=== PATIENT | female | born 1970 | race African-American/Black ===

== ENCOUNTER 2021-02-07 15:06 | Outpatient (REF) | payer OTHER, SELFPAY ==
[2021-02-10 22:27] LABS: HPV mRNA E6/E7 rflx Not Detected (Not Detected)
== END 2021-02-07 15:07 | disposition home or self-care (01) ==
LOC: HO.LAB 15:06
PROVIDERS: Visit Provider Obstetrics & Gynecology
DX: Z12.4 Encounter for screening for malignant neoplasm of cervix (principal); Z11.51 Encounter for screening for human papillomavirus (HPV); N95.0 Postmenopausal bleeding
CPT/HCPCS: 87624; 88142; 99202

== ENCOUNTER → 2021-02-22 11:11 | Outpatient (BNVA) | payer OTHER, SELFPAY | PROVIDERS: Visit Provider Obstetrics & Gynecology ==

== ENCOUNTER → 2021-03-03 14:35 | Outpatient (BNVA) | payer OTHER, SELFPAY | PROVIDERS: Visit Provider Obstetrics & Gynecology | DX: N95.0 Postmenopausal bleeding (principal) | CPT/HCPCS: 99212 ==

== ENCOUNTER 2021-03-11 05:59 | Day surgery (SDC) | payer OTHER, SELFPAY ==
[2021-03-04 13:26] VITALS: BMI 21.7
--- NOTE | 2021-03-10 08:31 | HO.ANESPROP2 ---
Documented by User: Lisa Gleason 03/10/21 08:31 HPI - Anesthesia Eval Consult details Narrative: 50yo F for D&C Hysteroscopy, Poss Polypectomy, Poss Myomectomy PMFSH Active Problems Active Problems: All Active Problems (Updated 02/22/21 @ 11:16 by Fuad Santana MD) Postmenopausal bleeding (Acute) Past Medical History Medical History History of bilateral breast cancer Surgical History Surgical History H/O lumpectomy Social History Social History Alcohol intake: never Patient Tobacco Use Status: Never used Tobacco Use of substances other than those prescribed or required for medical reasons: No Are you DNR?: No Advance Directives: No Advance Directives Information Provided: Yes Meds Allergies Allergy/AdvReac Type Severity Reaction Status Date / Time latex AdvReac Hives Verified 03/11/21 06:27 Home Medications Medication Instructions Recorded Confirmed Last Taken Type azelastine 1 drp OPHTHALMIC (EYE) BID 03/04/21 03/04/21 Unknown History Exam Exam Date and Time: March 10, 2021 0831 Height,Weight and Vital Signs: Height 5 ft 8 in Weight 65 kg Assessment and Plan Assessment Anesthesia Assessment: Chart Reviewed Documented by User: Yarely Dyer 03/11/21 07:29 [facility] Past Medical History Medical History History of bilateral breast cancer Surgical History Surgical History H/O lumpectomy Social History Social History Alcohol intake: never Patient Tobacco Use Status: Never used Tobacco Use of substances other than those prescribed or required for medical reasons: No Are you DNR?: No Advance Directives: No Advance Directives Information Provided: Yes Meds Allergies Allergy/AdvReac Type Severity Reaction Status Date / Time latex AdvReac Hives Verified 03/11/21 06:27 Home Medications Medication Instructions Recorded Confirmed Last Taken Type azelastine 1 drp OPHTHALMIC (EYE) BID 03/04/21 03/04/21 Unknown History Exam Airway Mallampati Class: II TM Dist: >3cm Loose/Missing/Broken Teeth: No Heart: RRR Lungs: CTA Assessment and Plan Assessment Anesthesia Assessment: Anesthesia Plan Discussed and Chart Reviewed Final Anesthetic Review NPO: Yes ASA Class: II Final Preanesthetic Review: Meds/Allgs Chart Reviewed, Consent Obtained/Reviewed and Anes Risks/Benef Reviewed Patient Risk: Low Procedure Risk: Low Anesthetic Plan Anesthetic Plan: GA Disposition: Standard PACU
[2021-03-11] VITALS (7 sets, daily range): BP systolic 105–151; BP diastolic 62–94; PULSE 76–107; RESP 16; TEMP 36.9–37.4; O2SAT 97–100
[2021-03-11] MEDS: Lactated Ringers 1,000 ML 100 ML IVCONT (06:35)
--- NOTE | 2021-03-11 07:33 | MHC.SHP ---
Pre-Procedural Eval Section A Date of Service: 03/11/21 The patient is an INPATIENT: No Changes since office visit: No Cold of Flu in the past 2 weeks, No New Medical Problems, No Changes in Medication and No Patient answered all questions The History & Physical has been completed within 30 days and I have reviewed it.: Yes Section B Chief Complaint: postmenopausal bleeding Allergies: Allergies Allergy/AdvReac Type Severity Reaction Status Date / Time latex AdvReac Hives Verified 03/11/21 06:27 Plan Diagnosis/Plan: Unchanged I have reviewed the history and physical and performed a pertinent physical examination on my patient. No changes have occurred unless specified.
--- NOTE | 2021-03-11 07:55 | PM.OP ---
Brief Operative Note Date of Service: 03/11/21 Pre-op diagnosis: Postmenopausal bleeding possible endometrial polyp Post-op diagnosis: same (Postmenopausal bleeding + normal endometrial /endocervical cavity) Procedure: Hysteroscopy D&C Surgeon: Fuad Santana MD Anesthesia: MAC Was an Occupational Therapist Aide used for this Procedure?: No Estimated blood loss (mL): 0 Pathology: other (Endometrial Scrapping) Condition: stable Disposition: PACU
--- NOTE | 2021-03-11 07:57 | W.PM.OPN ---
Operative Note Operative Note Date of Service: 03/11/21 Narrative: Preop Diagnosis: Postmenopausal bleeding, Endometrial polyp by US Operation: Diagnostic Hysteroscopy, Dilataion & Curettage Post Op Diagnosis: Normnal endometrial /endocervical cavity QBL: Minimal Anesthesia: MAC Surgeon: Fuad Santana MD Housing Relocation: None Complication: None Pathology: Endometrial Scrapings Procedure: The patient was put in the dorsal lithotomy position, scrubbed, and draped in the usual manner. A sterile speculum was inserted in the patient's vagina. The anterior lip of the cervix was grasped with a single tooth tenaculum. The cervix was dilated up to 5 mm, then the scope was inserted in the patient's uterus. Inspection revealed normnal endometrial /endocervical cavity. Sharp curetting was carried done with moderate amount of tissues retreived no complications. At the end of the procedure, all instruments were taken out of the patient uterine and vaginal cavity. The single tooth tenaculum was removed and homeostasis was assured using pressure,. The patient tolerated the procedure well and was transferred to the PACU in a stable condition.
== END 2021-03-11 09:54 | disposition home or self-care (01) ==
LOC: HO.SSS 06:00
PROVIDERS: PCP Nurse Practitioner Family; Visit Provider Obstetrics & Gynecology
PROC: 0UDB8ZZ Extraction of Endometrium, Via Natural or Artificial Opening Endoscopic (ICD-10-PCS; CPT 58558; principal; 2021-03-11 07:30)
DX: N95.0 Postmenopausal bleeding (principal); Z85.3 Personal history of malignant neoplasm of breast; Z91.040 Latex allergy status
CPT/HCPCS: 58558; 88305; J0330; J1100; J1885; J2250; J2405; J3010

== ENCOUNTER → 2021-03-24 14:53 | Outpatient (BNVA) | payer OTHER, SELFPAY | PROVIDERS: PCP Nurse Practitioner Family; Visit Provider Obstetrics & Gynecology ==

== ENCOUNTER → 2021-05-04 15:28 | Outpatient (BNVA) | payer OTHER, SELFPAY | PROVIDERS: PCP Nurse Practitioner Family; Visit Provider Obstetrics & Gynecology | DX: Z13.89 Encounter for screening for other disorder (principal) | CPT/HCPCS: 99212 ==

== ENCOUNTER 2021-06-07 14:04 | Outpatient (REF) | payer OTHER, SELFPAY | END 2021-06-07 14:05 | disposition home or self-care (01) | LOC: HO.LAB 14:04 | PROVIDERS: PCP Nurse Practitioner Family; Visit Provider Obstetrics & Gynecology | DX: N95.0 Postmenopausal bleeding (principal) | CPT/HCPCS: 58100; 88305 ==

== ENCOUNTER → 2021-06-28 09:48 | Outpatient (BNVA) | payer OTHER, SELFPAY | PROVIDERS: PCP Nurse Practitioner Family; Visit Provider Obstetrics & Gynecology | DX: N95.0 Postmenopausal bleeding (principal) | CPT/HCPCS: 99212 ==

== ENCOUNTER 2024-09-02 13:19 | Outpatient (REF) | payer OTHER, SELFPAY ==
--- NOTE | ~2024-09-02 | XR_ITS ---
CLINICAL HISTORY: COUGH 2 view chest x-ray Comparison: None Findings: The lungs are clear. Normal size heart. No acute fracture. Prior right mastectomy. IMPRESSION: 1. No acute findings. This document has been electronically signed by: Char Guidry MD on 09/04/2024 05:08:35
== END 2024-09-02 13:20 | disposition home or self-care (01) ==
LOC: HO.XRAY 13:19
PROVIDERS: PCP Physician Assistant; Visit Provider Nurse Practitioner Family
DX: R05.1 Acute cough (principal)
CPT/HCPCS: 71046

== ENCOUNTER → 2024-09-02 16:31 | Outpatient (BNV) | payer OTHER, SELFPAY | PROVIDERS: PCP Physician Assistant; Visit Provider Radiology Diagnostic Radiology | DX: R05.9 Cough, unspecified (principal) | CPT/HCPCS: 71046 ==

== ENCOUNTER → 2025-02-24 10:58 | Outpatient (BNV) | payer OTHER, SELFPAY | PROVIDERS: PCP Nurse Practitioner Family; Visit Provider Internal Medicine | DX: C50.912 Malignant neoplasm of unspecified site of left female breast (principal) | CPT/HCPCS: 99204 ==

== ENCOUNTER 2025-05-14 16:28 | Outpatient (REF) | payer OTHER, SELFPAY ==
--- OUTSIDE RECORDS SUMMARY | 2025-05-14 19:56 | XMS_ITS | Clinical Summary ---
Author Organization [facility] Address [address] [address] Phone Care Team Providers Care Acquisitions Librarian Name Role Phone Bertha Montano Primary Care Provider [phone] Allergies Active Allergy Reactions Criticality Noted Date Comments Latex Hives 12/16/2020 Medications albuterol 90 mcg/actuation inhaler Inhale 2 puffs into the lungs every 6 (six) hours as needed for wheezing. 8 g 08/23/2024 Active Active Problems Problem Noted Date Diagnosed Date Bilateral malignant neoplasm of breast in female, estrogen receptor positive 12/19/2020 Overview (08/23/2024): H/O Right-sided stage IIb breast cancer T2N1, ER positive HER-2 negative in 2008, treated with mastectomy, chemotherapy question AC Taxol, completed 5 years of tamoxifen RIGHT-SIDED MASTECTOMY WITH LEFT-SIDED LUMPECTOMY AND RADIATION THERAPY AND CHEMOTHERAPY Seasonal allergic rhinitis 12/19/2020 Immunizations No known immunizations Social History Tobacco Use Types Packs/Day Years Used Date Smoking Tobacco: Never Smokeless Tobacco: Never Tobacco Cessation:Counseling Given: Not Answered Education Answer Date Recorded Are you interested in more education? Not on vianca e 08/23/2024 Are you concerned about learning? Not on file 08/23/2024 No 08/23/2024 No 08/23/2024 Digital Access Answer Date Recorded No 08/23/2024 No 08/23/2024 Reliable internet access at home? Not on file 08/23/2024 Device with a working camera? Not on file Comments Unknown Sex and Gender Information Value Date Recorded Sex Assigned at Not on file Legal Sex Female 4:07 PM EDT Gender Identity Not on file Sexual Orientation Not on file Last Filed Vital Signs Vital Sign Reading Time Taken Comments Blood Pressure 99/61 08/23/2024 11:06 AM EST Pulse 118 08/23/2024 11:06 AM EST Temperature 36.8 C (98.2 F) 08/23/2024 11:06 AM EST Respiratory Rate 16 08/23/2024 11:06 AM EST Oxygen Saturation 98% 08/23/2024 11:06 AM EST Inhaled Oxygen Concentration - - Weight - - Height - - Body Mass Index - - Plan of Treatment Health Maintenance Due Date Last Done Comments DEPRESSION SCREENING 1982 HEPATITIS C SCREENING 1988 HIV ONE-TIME SCREENING (18-6 5 YEARS) 1988 PNEUMOCOCCAL VACCINES (50+ years) (1 of 2 - PCV) 1989 ZOSTER VACCINES (1 of 2) 1989 PAP SMEAR 1991 COLOGUARD 2015 COLONOSCOPY 2015 COLORECTAL CANCER SCREENING 2015 FIT TEST 2015 FOBT 2015 SIGMOIDOSCOPY 2015 VIRTUAL COLONOSCOPY 2015 MAMMOGRAM 02/02/2023 02/02/2021, 10/18/2019 INFLUENZA VACCINE (#1) 2025 COVID-19 VACCINE (1 - 2023-2 5 season) 2025 LIPID PANEL 09/28/2028 09/28/2023, 09/28/2023 Adult Td,Tdap Booster 12/16/2030 12/16/2020 SMOKING STATUS SCREENING (On ce After 26 Yrs) Completed 08/23/2024 HEPATITIS A VACCINES Aged Out No long er eligible based on patient's age to complete this topic HIB VACCINES Aged Out No longer eligi ble based on patient's age to complete this topic MENINGOCOCCAL VACCINES (ACWY) Aged Out No longer eligible based on patient's age to complete this topic MENINGOCOCCAL VACCINES (B) Aged Out N o longer eligible based on patient's age to complete this topic Medical Devices Not on file Care Teams Acquisitions Librarian Relationship Specialty Start Date End Date Bertha Montano PA [address] [place] [address] PCP - General Physician Manager Bakery 08/23/24 Additional Source Comments The information contained in this document represents components of the legal health record. It is not the complete legal health record.[facility]
--- OUTSIDE RECORDS SUMMARY | 2025-05-14 19:56 | XMS_ITS ---
Author Name [facility] Organization Unknown Encounters Encounter Type Encounter Reason Primary Diagnosis Location Date Ambulatory [facility], [facility]. ([facility]) 08/09/2024
--- OUTSIDE RECORDS SUMMARY | 2025-05-14 19:56 | XMS_ITS | Clinical Summary ---
Author Organization [facility] Address [address] [place] [address] Care Team Providers Care Cup Machine Operator Name Role Phone Yehudarebekah Kentonrita PRYIA Primary Care Provider [phone] Source Comments PLEASE NOTE, if this patient is a minor, it may be UNLAWFUL to discuss sensitive information that is contained in these records (such as FAMILY PLANNING, MENTAL HEALTH or SUBSTANCE ABUSE) with the minor patient's parent or other person without the patient's specific authorization.[facility] Allergies Active Allergy Reactions Criticality Noted Date Comments Latex Hives 12/16/2020 Medications MISCELLANEOUS MEDICAL SUPPLY MISCIndications: Bilateral malignant neoplasm of breast in female, estrogen receptor positive, unspecified site of breast ([facility]),H/O right mastectomy Right breast prosthesis to be worn daily as needed. Please size patient for fitting. Length of need 99 years. Diagnosis mastectomy and breast cancer 1 Each 4 Active budesonide-formo teroL (SYMBICORT) 160-4.5 mcg/actuation inhalerIndicatio ns:Acute cough,Post-viral cough syndrome Inhale 2 Puffs into the lungs 2 (two) times daily 10.2 g 5 Active Active Problems Problem Noted Date Diagnosed Date Abnormal vaginal bleeding in postmenopausal yeni ent 07/01/2021 Bilateral malignant neoplasm of breast in female, estrogen receptor positive (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 Left breast [id number] grade 3 infiltrating ductal carcinoma, ER positive, HER-2 negative diagnosed in 08/04 Status post partial mastectomy SLND by Dr. Elliott in 10/06 Oncotype DX score high at 51 Genetic testing with 8 gene panel negative Adjuvant chemotherapy with curative intent with TC 4 cycles completed in 02/03 Tamoxifen 20 mg PO daily Seasonal allergic rhinitis 12/19/2020 Resolved Problems Problem Noted Date Diagnosed Date Resolved Date Gastroesophageal reflux dise ase without esophagitis 07/10/2021 07/10/2021 Dry cough 07/10/2021 07/10/2021 Immunizations Immunization Administration Dates Next Due TDAP 12/16/2020 ZOSTER VACCINE, RECOMBINANT (SHINGRIX) 1,12/16/2020 Family History Medical History Relation Name Comments No Known Problems Daughter No Known Problems Father No Known Problems Mother Relation Name Status Comments Daughter Alive Father Alive Mother Alive Social History Tobacco Use Types Packs/Day Years Used Date Smoking Tobacco: Never Passive Smoke Exposure: Never Smokeless Tobacco: Never Alcohol Use Standard Drinks/Week Comments Not Currently 0 (1 standard drink = 0.6 oz pur e alcohol) Social Connections Answer Date Recorded Connectedness 0 2024 Financial Resource Strain Answer Date R ecorded Financial Resource Strain 0 2019 Stress Answer Date Recorded Stress 0 11/14/2019 Physical Activity Answer Date Recorded Physical Activity 0 11/14/2019 Food Insecurity Answer Date Recorded Food 0 05/15/2024 Transportation Needs Answer Date Record ed Transportation 0 11/14/2019 Housing Stability Answer Date Recorded Housing 0 11/14/2019 Safety and Environment Answer Date Eldon rded Safety 0 11/14/2019 Utilities Answer Date Recorded Utilities 0 11/14/2019 Employment Answer Date Recorded Stress 0 2024 Comments No Sex and Gender Information Value Date Recorded Sex Assigned at Female 12/19/2020 3:18 PM PDT Legal Sex Female 7:58 AM PST Gender Identity Female 12/19/2020 3:18 PM PDT Sexual Orientation Straight 12/19/2020 3: 18 PM PDT Last Filed Vital Signs Vital Sign Reading Time Taken Comments Blood Pressure 115/78 09/02/2024 11:06 AM EST Pulse 89 09/02/2024 11:06 AM EST Temperature 36.9 C (98.4 F) 09/02/2024 11:06 AM EST Respiratory Rate 16 09/02/2024 11:06 AM EST Oxygen Saturation 98% 02/22/2021 8:57 AM EDT Inhaled Oxygen Concentration - - Weight 67.1 kg (148 lb) 09/02/2024 11:06 AM EST Height 172.7 cm (5' 8 ) 02/22/2021 8:57 AM EDT Body Mass Index 22.5 02/22/2021 8:57 AM EDT Plan of Treatment Health Maintenance Due Date Last Done Comments Anxiety Screening 1970 HPV Screening 1970 Pap + HPV 1970 Imm-Hepatitis B (1 of 3 - 19 + 3-dose series) 1989 Cervical Cancer Screening [address] Colonography 2015 FIT/gFOBT 2015 Fecal DNA 2015 Flexible Sigmoidoscopy 2015 Imm-Pneumococcal 50+ (1 of 1 - PCV) 2020 Breast Cancer Screening (Mammogram) 02/16/2023 02/16/2021, 02/02/2021, 02/02/2021, Additional history exists Diabetes Screening 12/17/2023 12/16/2020, 12/16/2020 Alcohol and Drug Screen 08/20/2024 12/16/2020 Depression Annual Screen 08/20/2024 12/16/2020 Annual Wellness (Adult): Indicated (All Coverage) 09/28/2024 09/28/2023, 12/16/2020 [id number] (3 - season) 2025 021, 05/19/2021 Imm-Influenza (#1) 2025 Hypertension Screening (#1) 09/02/2025 Tobacco Screening 09/02/2025 09/02/2024 Lipid Screening 09/28/2028 09/28/2023, 12/16/2020 Imm-DTaP/Tdap/Td (2 - Td or Tdap) 12/16/2030 021 Colonoscopy 07/05/2031 07/05/2021 Colorectal Cancer Screening 07/05/2031 HIV Screening Completed 12/16/2020 Hepatitis C Screening Completed 12/16/2020 Imm-Zoster, Recombinant Completed 02/22/2021, 12/16 Cervical Ablation/Cold-Knife Conization Discontinued Cervical Cryotherapy Discontinued Colposcopy Discontinued Endometrial Biopsy Discontinued Excision/Leep Discontinued HPV Genotyping Discontinued Vaginal Pap Discontinued Vulvoscopy Discontinued Procedures Procedure Name Priority Date/Time Associated Diagnosis Comments LIPID PANEL Routine 09/28/2023 9:15 AM EST Lipid screening REFERRAL FOR COLONOSCOPY Routine 07/05/2021 3:00 AM EST Colon cancer screening MA DIGITAL DIAGNOSTIC MAMMO BILAT W CAD Routine 02/16/2021 2:01 PM EDT Bilateral malignant neoplasm of breast in female, estrogen receptor positive, unspecified site of breast (HCC-CMS) HIV 1/2 AG & AB W/RFLX (4TH GEN) Routine 12/16/2020 11:04 AM EDT Encounter for wellness examination in adult ACUTE HEPATITIS PANEL W/RFLX Routine 12/16/2020 11:04 AM EDT Encounter for wellness examination in adult COMPREHENSIVE METABOLIC PANEL Routine 12/16/2020 11:04 AM EDT Encounter for wellness examination in adult from Last 3 Months or Most Recently Relevant to Health Maintenance Results * LIPID PANEL (09/28/2023 9:15 AM EST) CHOLESTEROL, TOTAL 167 <200 mg/dL [facility] HDL CHOLESTEROL 67 > OR = 50 mg/dL [facility] TRIGLYCERIDES 52 <150 mg/dL [facility] LDL-CHOLESTEROL 87 99 mg/dL (calc) [facility] Comment: Reference range: <100 Desirable range <100 mg/dL for primary prevention; <70 mg/dL for patients with CHD or diabetic patients with > or = 2 CHD risk factors. LDL-C is now calculated using the Trudy calculation, which is a validated novel method providing better accuracy than the Friedewald equation in the estimation of LDL-C. Shai SS et al. BRENDON. 2013;310(19): 4603-5712 (http://education.Quest[employer].com/faq/HHL085) CHOL/HDLC RATIO 2.5 <5.0 (calc) [facility] NON-HDL CHOLESTEROL 100 <130 mg/dL (calc) [facility] Comment: For patients with diabetes plus 1 major ASCVD risk factor, treating to a non-HDL-C goal of <100 mg/dL (LDL-C of <70 mg/dL) is considered a therapeutic option. Blood Blood / Unknown 09/28/2023 9 :15 AM EST 09/28/2023 9:15 AM EST Bertha HINES LAB - BLOOD DRAW Final Result [facility] [address] [address], [facility] [address] [address] * REFERRAL FOR COLONOSCOPY (07/05/2021 3:00 AM EST) 07/05/2021 3:00 AM EST Shaina Choudhary GAS OPERATOR-C REFERRAL Edited Resul t - Final * [place] DIGITAL DIAGNOSTIC MAMMO BILAT W CAD (02/16/2021 2:01 PM EDT) Shaina Choudhary GAS OPERATOR-C IMG MAMMO Final Result * ACUTE HEPATITIS PANEL W/RFLX (12/16/2020 11:04 AM EDT) HEPATITIS A IGM ANTIBODY NON-REACT EL NON-REACT EL [facility] COMMENT [facility] HEPATITIS B SURFACE ANTIGEN NON-REACT EL NON-REACT EL [facility] HEPATITIS B CORE IGM ANTIBODY NON-REACT EL NON-REACT EL [facility] HEPATITIS C ANTIBODY NON-REACT EL NON-REACT EL [facility] SIGNAL TO CUT-OFF 0.03 <1.00 [facility] Comment: HCV antibody was non-reactive. There is no laboratory evidence of HCV infection. In most cases, no further action is required. However, if recent HCV exposure is suspected, a test for HCV RNA (test code 43943) is suggested. For additional information please refer to http://[employer]iar.[employer]/faq/IAF48a6 (This link is being provided for informational/ educational purposes only.) Blood Blood / Unknown 12/16/2020 1 1:04 AM EDT 12/16/2020 11:04 AM EDT Narrative [facility] - 12/16/2020 9:23 PM EDT For additional information, please refer to http://[employer]iar.[employer]/faq/ONJ996 (This link is being provided for informational/ educational purposes only.) Shaina Choudhary GAS OPERATOR-C LAB - BLOOD DRAW Final Resul t [facility] [address] [address], [facility] [address] [address] * COMPRE METAB PANEL (12/16/2020 11:04 AM EDT) GLUCOSE 95 65 - 99 mg/dL [facility] Comment: Fasting reference interval UREA NITROGEN (BUN) 10 7 - 25 mg/dL [facility] CREATININE (blood) 0.76 0.50 - 1.05 mg/dL [facility] Comment: For patients >49 years of age, the reference limit for Creatinine is approximately 13% higher for people identified as -Icelandic. GFR ESTIMATED 91 > OR = 60 mL/min/1 .73m2 [facility] EGFR 106 > OR = 60 mL/min/1 .73m2 [facility] BUN/CREATININE RATIO NOT APPLICABLE 6 - 22 [facility] SODIUM 140 135 - 146 mmol/L [facility] POTASSIUM 4.1 3.5 - 5.3 mmol/L [facility] CHLORIDE 103 98 - 110 mmol/L [facility] CARBON DIOXIDE 32 20 - 32 mmol/L [facility] CALCIUM 9.7 8.6 - 10.4 mg/dL [facility] PROTEIN, TOTAL 7.4 6.1 - 8.1 g/dL [facility] ALBUMIN 4.3 3.6 - 5.1 g/dL [facility] GLOBULIN 3.1 1.9 - 3.7 g/dL (calc) [facility] ALBUMIN/GLOBULIN RATIO 1.4 1.0 - 2.5 (calc) [facility] BILIRUBIN, TOTAL 0.6 0.2 - 1.2 mg/dL [facility] ALKALINE PHOSPHATASE 134 37 - 153 U/L [facility] AST 18 10 - 35 U/L [facility] ALT 14 6 - 29 U/L [facility] Blood Blood / Unknown 12/16/2020 1 1:04 AM EDT 12/16/2020 11:04 AM EDT Shaina Choudhary GAS OPERATOR-C LAB - BLOOD DRAW Final Resul t [facility] [address] [address], [facility] [address] [address] from Last 3 Months or Most Recently Relevant to Health Maintenance Insurance [place] [facility] SAFETY NET DENTAL BENEFIT [employer] [place] Member Subscriber Plan / Payer (Ef fective 2022-Present) Name:Vanita Patel Relation to Subscriber:Self Name:Vanita Patel Payer ID:[id number] Type:Indemnity Address: [facility] [address] [place] [address] Care Teams Cup Machine Operator Relationship Specialty Start Date End Date Renard Chin NP [address] [place] [address] PCP - General Family Medicine, CHIEF STATION ENGINEER 10/13/24
== END 2025-05-14 16:29 | disposition home or self-care (01) ==
LOC: HO.MAMMO 16:28
PROVIDERS: PCP Internal Medicine; Visit Provider Internal Medicine
DX: Z12.31 Encounter for screening mammogram for malignant neoplasm of breast (principal)
CPT/HCPCS: 77063; 77067

== ENCOUNTER → 2025-05-14 16:30 | Outpatient (BNV) | payer OTHER, SELFPAY | PROVIDERS: PCP Internal Medicine; Visit Provider Internal Medicine | DX: Z12.31 Encounter for screening mammogram for malignant neoplasm of breast (principal) | CPT/HCPCS: 77063; 77067 ==

== ENCOUNTER 2025-06-23 12:59 | Outpatient (REF) | payer OTHER, SELFPAY ==
--- NOTE | ~2025-06-23 | MM_ITS ---
EXAMINATION(S): 1. MM DIAGNOSTIC DIGITAL BREAST TOMOSYNTHESIS, RIGHT 2. Targeted ultrasound of the right breast CLINICAL INFORMATION: -Personal history of bilateral breast cancer. Right mastectomy in 2005. Left breast lumpectomy in 2017. -Callback from screening for left breast focal asymmetry in the central inner anterior depth COMPARISON: Comparison made to multiple prior, most recent May 14, 2025, and most remote July 21, 2016. TECHNIQUE: Digital breast tomosynthesis is performed in full field ML 90 degrees along with computer-aided detection (CAD). Synthesized 2D images are generated from the tomosynthesis. Spot compression tomosynthesis were obtained. FINDINGS: BREAST COMPOSITION: There are scattered areas of fibroglandular density. LEFT BREAST: Previously suggested focal asymmetry in the upper breast persists at approximately 12 o'clock position at 3 cm from the nipple, measuring approximately 0.5 cm in size (spot MLO 38/64, spot CC 37/61). This is not well identified on the ML 90 degrees view, probably due to the skin fold from previous surgical scar. Targeted ultrasound of the left breast was performed at the location of the mammographic finding. The survey performed throughout the upper inner quadrant and along the 12:00 axis shows a 0.4 x 0.21 x 0.3 cm hypoechoic lesion at 12 o'clock position 3 cm from the nipple. No internal vascularity demonstrated with color Doppler evaluation. MM/MM tomosynthesis added views L IMPRESSION: LEFT BREAST: Post operative changes. A 0.4 cm hypoechoic lesion at 12 o'clock position 3 cm from the nipple, most likely correlates with the mammographic finding. Difficult to determine if represents a lymph node or solid mass. Probably benign. A 6-month follow-up is recommended with left breast mammogram and left breast ultrasound. ASSESSMENT: BI-RADS: Category 3: Probably benign RECOMMENDATION: 6 Month F/U Results were discussed with the patient at time of visit. This patient's information was entered into a reminder system with a target due date for their next mammogram. Electronically signed by: Praful Ferrara MD 06/23/2025 03:28 PM [facility] Workstation: [id number]
--- OUTSIDE RECORDS SUMMARY | 2025-06-23 15:40 | XMS_ITS | Clinical Summary ---
Author Organization [facility] Address [address] [address] Phone Care Team Providers Care Hydraulic Barker Operator Name Role Phone Montano Bertha HINES Primary Care Provider [phone] Allergies Active Allergy Reactions Criticality Noted Date [...] 10/18/2019 INFLUENZA VACCINE (#1) 2025 COVID-19 VACCINE ( - 2024-2 6 season) 2025 LIPID PANEL 09/28/2028 09/28/2023, 09/28/2023 Adult Td,Tdap Booster 12/16/2030 12/16/2020 RSV VACCINE (1 - 1-dose 75+ series) 2045 SMOKING STATUS SCREENING (On ce After 26 [...] Medical Devices Not on file Care Teams Hydraulic Barker Operator Relationship Specialty Start Date End Date Bertha Montano PA [address] [place] [id number] PCP - General Physician Pulp Roller 1/4/25 Additional Source Comments The information contained in this document represents components of the legal health record. It is not the complete legal health record.[facility]
--- OUTSIDE RECORDS SUMMARY | 2025-06-23 15:40 | XMS_ITS | Clinical Summary ---
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 Phone Renard Chin NP Primary Care Provider [phone] Source Comments PLEASE NOTE, if this patient [...] female, estrogen receptor positive, unspecified site of breast,H/O right mastectomy Right breast prosthesis to be [...] in female, estrogen receptor positive 12/19/2020 Overview (12/19/2020): H/O Right-sided stage IIb breast cancer T2N1, ER positive HER-2 negative in 2008, treated with mastectomy, chemotherapy question AC Taxol, completed 5 years of tamoxifen RIGHT-SIDED MASTECTOMY WITH LEFT-SIDED LUMPECTOMY AND RADIATION THERAPY AND CHEMOTHERAPY Intraductal carcinoma and lobular carcinoma in s itu 12/19/2020 Overview (12/19/2020): 1. Left breast [id number] grade 3 infiltrating ductal carcinoma, ER positive, [...] Due TDAP 12/16/2020 ZOSTER VACCINE, RECOMBINANT (SHINGRIX) ,12/16/2020 Family History Medical History Relation Name Comments [...] Done Comments Anxiety Screening 1970 HPV Screening (self-collect) 1970 HPV Screening 1970 Pap + HPV [...] (Adult): Indicated (All Coverage) 09/28/2024 09/28/2023, 12/16/2020 [id number] ( season) 2025 021, 05/19/2021 Imm-Influenza (#1) 2025 Hypertension Screening (#1) 09/02/2025 Tobacco Screening 09/02/2025 09/02/2024 Lipid Screening 09/28/2028 09/28/2023, 12/16/2020 Imm-DTaP/Tdap/Td (2 - Td or Tdap) 12/16/2030 021 Colonoscopy 07/05/2031 07/05/2021 Colorectal Cancer Screening 07/05/2031 HIV Screening Completed 12/16/2020 Hepatitis C Screening Completed 12/16/2020 Imm-Zoster, Recombinant Completed 02/22/2021, 12/16 Cervical Ablation/Cold-Knife Conization Discontinued Cervical Cryotherapy Discontinued Colposcopy Discontinued Excision/Leep Discontinued HPV Genotyping Discontinued Vaginal [...] AM EST) CHOLESTEROL, TOTAL 167 <200 mg/dL [facility] HDL CHOLESTEROL 67 > OR = 50 mg/dL [facility] TRIGLYCERIDES 52 <150 mg/dL [facility] LDL-CHOLESTEROL 87 99 mg/dL (calc) [facility] Comment: Reference range: <100 Desirable range <100 mg/dL for primary prevention; <70 mg/dL for patients with CHD or diabetic patients with > or = 2 CHD risk factors. LDL-C is now calculated using the Trudy calculation, which is a validated novel method providing better accuracy than the Friedewald equation in the estimation of LDL-C. Shai HENRY et al. BRENDON. 2013;310(19): 0244-4118 (http://education.Planana/faq/ROW396) CHOL/HDLC RATIO 2.5 <5.0 (calc) [facility] NON-HDL CHOLESTEROL 100 <130 mg/dL (calc) [facility] Comment: For patients with diabetes plus 1 major ASCVD risk factor, treating to a non-HDL-C goal of <100 mg/dL (LDL-C of <70 mg/dL) is considered a therapeutic option. Blood Blood / Unknown 09/28/2023 9 :15 AM EST 09/28/2023 9:15 AM EST [facility] - BLOOD DRAW Final Result [facility] [address] [address], [facility] [address] [address] * REFERRAL FOR COLONOSCOPY (07/05/2021 3:00 AM EST) 07/05/2021 3:00 AM EST Shaina Choudhary [facility] HIKER-C REFERRAL Edited Resul t - Final * DC DIGITAL DIAGNOSTIC MAMMO BILAT W CAD (02/16/2021 2:01 PM EDT) Shaina Choudhary [facility] IMG MAMMO Final Result * ACUTE HEPATITIS PANEL W/RFLX (12/16/2020 11:04 AM EDT) HEPATITIS A IGM ANTIBODY NON-REACT EL NON-REACT EL [facility] COMMENT [facility] HEPATITIS B SURFACE ANTIGEN NON-REACT EL NON-REACT EL [facility] HEPATITIS B CORE IGM ANTIBODY NON-REACT EL NON-REACT EL [facility] HEPATITIS C ANTIBODY NON-REACT EL NON-REACT EL [facility] SIGNAL TO CUT-OFF 0.03 <1.00 [facility] Comment: HCV antibody was non-reactive. There is no laboratory evidence of HCV infection. In most cases, no further action is required. However, if recent HCV exposure is suspected, a test for HCV RNA (test code 10791) is suggested. For additional information please refer to http://ithinksport.Rocket Software/faq/LJW23v1 (This link is being provided for informational/ educational purposes only.) Blood Blood / Unknown 12/16/2020 1 1:04 AM EDT 12/16/2020 11:04 AM EDT Narrative [email or web address] [facility] - 12/16/2020 9:23 PM EDT For additional information, please refer to http://ithinksport.R[employer] Software/faq/XDE154 (This link is being provided for informational/ educational purposes only.) Shaina Choudhary [facility] - BLOOD DRAW Final Resul t [email or web address] [facility] [address] [address], [facility] [address] [address] * COMPRE METAB PANEL (12/16/2020 11:04 AM EDT) GLUCOSE 95 65 - 99 mg/dL [facility] Comment: Fasting reference interval UREA NITROGEN (BUN) 10 7 - 25 mg/dL [facility] CREATININE (blood) 0.76 0.50 - 1.05 mg/dL [facility] Comment: For patients >49 years of age, the reference limit for Creatinine is approximately 13% higher for people identified as -Bahamian. GFR ESTIMATED 91 > OR = 60 mL/min/1 .73m2 [facility] EGFR 106 > OR = 60 mL/min/1 .73m2 [facility] BUN/CREATININE RATIO NOT APPLICABLE 6 - 22 [facility] SODIUM 140 135 - 146 mmol/L [facility] POTASSIUM 4.1 3.5 - 5.3 mmol/L [facility] CHLORIDE 103 98 - 110 mmol/L [facility] CARBON DIOXIDE 32 20 - 32 mmol/L [facility] CALCIUM 9.7 8.6 - 10.4 mg/dL [facility] PROTEIN, TOTAL 7.4 6.1 - 8.1 g/dL [facility] ALBUMIN 4.3 3.6 - 5.1 g/dL [employer] [facility] GLOBULIN 3.1 1.9 - 3.7 g/dL (calc) [facility] ALBUMIN/GLOBULIN RATIO 1.4 1.0 - 2.5 (calc) [facility] BILIRUBIN, TOTAL 0.6 0.2 - 1.2 mg/dL [facility] ALKALINE PHOSPHATASE 134 37 - 153 U/L [facility] AST 18 10 - 35 U/L [facility] ALT 14 6 - 29 U/L [facility] Blood Blood / Unknown 12/16/2020 1 1:04 AM EDT 12/16/2020 11:04 AM EDT Shaina Choudhary [facility] - BLOOD DRAW Final Resul t [facility] [employer] [address] [address], [facility] [address] [address] from Last 3 Months or Most Recently Relevant to Health Maintenance [place] [facility] SAFETY NET DENTAL BENEFIT ADMINISTRATORS OF [place] Member Subscriber Plan / Payer (Ef fective 2022-Present) Name:Vanita Patel Relation to Subscriber:Self Name:Vanita Patel Payer ID:[id number] Type:Indemnity Address: [facility] [address] [place] [address] Care Teams [employer] 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
== END 2025-06-23 13:00 | disposition home or self-care (01) ==
LOC: HO.MAMMO 12:59
PROVIDERS: PCP Internal Medicine; Visit Provider Internal Medicine
DX: N64.89 Other specified disorders of breast (principal)
CPT/HCPCS: 76642; 77061; 77065

== ENCOUNTER → 2025-06-23 13:00 | Outpatient (BNV) | payer OTHER, SELFPAY | PROVIDERS: PCP Internal Medicine; Visit Provider Radiology Body Imaging | DX: N64.89 Other specified disorders of breast (principal); Z85.3 Personal history of malignant neoplasm of breast | CPT/HCPCS: 76642; 77061; 77065 ==